=== PATIENT | male | born 1955 | race Caucasian/White ===

== ENCOUNTER 2021-01-18 13:25 | Emergency (ER) | payer OTHER, SELFPAY ==
[2021-01-18 13:27] VITALS: BP 174/92; PULSE 78; RESP 18; TEMP 36.1; O2SAT 100; BMI 27.8
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
[2021-01-18 13:50] VITALS: BP 152/74; PULSE 75; RESP 18; O2SAT 96
[2021-01-18 14:00] VITALS: BP 151/83; PULSE 86; RESP 17; O2SAT 97
[2021-01-18 14:30] VITALS: BP 173/81; PULSE 60; RESP 15; O2SAT 96
[2021-01-18] MEDS: OXYCODONE/ACETAMINOPHEN 5/325 TABLET 1 TAB PO (14:34)
[2021-01-18] MEDS: predniSONE 20 MG TABLET 40 MG PO (14:34)
[2021-01-18 15:00] VITALS: BP 162/79; PULSE 60; RESP 15; O2SAT 98
== END 2021-01-18 15:17 | disposition home or self-care (01) ==
PROVIDERS: Emergency Provider Emergency Medicine
DX: M54.16 Radiculopathy, lumbar region (principal); V89.2XXA Person injured in unspecified motor-vehicle accident, traffic, initial encounter
CPT/HCPCS: 72100; 99283; 99284